=== PATIENT | male | born 1980 | race Two or more races ===

== ENCOUNTER 2020-02-25 15:09 | Emergency (ER) | payer MEDICARE, OTHER ==
[2020-02-25] MEDS ORDERED: HYDROmorphone 1 MG/ML Syringe IVPUSH ONE ×5 (15:29→17:28)
[2020-02-25] MEDS ORDERED: oxyCODONE 5 MG Tab PO ONE (17:09)
--- NOTE | 2020-02-25 17:32 | EDM.PDOC ---
ED HPI GENERAL MEDICAL PROBLEM - General Chief Complaint: Upper Extremity Injury/Pain Stated Complaint: RT SHLDR Time Seen by Provider: 02/25/20 15:25 Source of Information: Reports: Patient History Limitations: Reports: No Limitations - History of Present Illness INITIAL COMMENTS - FREE TEXT/NARRATIVE: Alex is a 39 yo male who presents to the ED with c/o right shoulder pain. He reports he was climbing on a ladder. He slipped and attempted to grab on to the roof with RUE to avoid fall. Ended up falling and landing on his right elbow and reports immediate pain. He denies any numbness or tingling. Does have significant pain to his RUE with any movement. Denies any LOC with fall. Denies any other injury. Did dislocate his right shoulder approximately 4 years ago. Reports at that time he had to be "put under" to get it back in place. This was in [facility]. Onset: Today, Sudden Duration: Constant Location: Reports: Upper Extremity, Right Severity: Severe Worsens with: Reports: Movement Associated Symptoms: Reports: No Other Symptoms. 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 [No Known Home Meds] 02/25/20 [History] Past Medical History - Past Health History Medical/Surgical History: Denies Medical/Surgical History Musculoskeletal History: Reports: Other (See Below) Other Musculoskeletal History: has dislocated right shoulder previously; first time about 4 years ago Social & Family History - Family History Family Medical History: No Pertinent Family History Review of Systems - Review of Systems Review Of Systems: Comprehensive ROS is negative, except as noted in HPI. ED EXAM, GENERAL - Physical Exam Exam: See Below Exam Limited By: No Limitations General Appearance: Alert, WD/WN, Moderate Distress Eye Exam: Bilateral Eye: EOMI, Normal Fundi, Normal Inspection, PERRL Ears: Normal External Exam, Normal Canal, Hearing Grossly Normal, Normal TMs Nose: Normal Inspection, Normal Mucosa, No Blood Throat/Mouth: Normal Inspection, Normal Lips, Normal Teeth, Normal Gums, Normal Oropharynx, Normal Voice, No Airway Compromise Head: Atraumatic, Normocephalic Neck: Normal Inspection, Supple, Non-Tender, Full Range of Motion Respiratory/Chest: No Respiratory Distress, Lungs Clear, Normal Breath Sounds, No Accessory Muscle Use, Chest Non-Tender Cardiovascular: Normal Peripheral Pulses, Regular Rate, Rhythm, No Edema, No Gallop, No JVD, No Murmur, No Rub Peripheral Pulses: 2+: Radial (L), Radial (R) GI/Abdominal: Normal Bowel Sounds, Soft, Non-Tender, No Organomegaly, No Distention, No Abnormal Bruit, No Mass Extremities: Normal Capillary Refill, Arm Pain (RUE), Limited Range of Motion (R SHOULDER), Other (tenderness to right shoulder, visibly dislocated, unable to move without significant pain) Neurological: Alert, Oriented, CN II-XII Intact, Normal Cognition, Normal Gait, Normal Reflexes, No Motor/Sensory Deficits Psychiatric: Normal Affect, Normal Mood Skin Exam: Warm, Dry, Other (abrasion to right mid arm ) Course - Vital Signs Last Recorded V/S: Last Vital Signs Temp 98.2 F 02/25/20 17:29 Pulse 82 02/25/20 17:29 Resp 16 02/25/20 17:29 BP 154/93 H 02/25/20 17:29 Pulse Ox 97 02/25/20 17:29 - Orders/Labs/Meds Orders: Active Orders 24 hr Category Date Time Status Shoulder Comp Rt [CR] Stat Exams 02/25/20 15:44 Ordered Meds: Medications Discontinued Medications Generic Name Dose Route Start Last Admin Trade Name Ozzy PRN Reason Stop Dose Admin Diazepam 10 mg 02/25/20 15:43 02/25/20 15:58 Valium IVPUSH 02/25/20 15:44 10 mg ONETIME ONE Administration Diazepam 5 mg 02/25/20 16:11 02/25/20 15:58 Valium IVPUSH 02/25/20 16:12 5 mg ONETIME ONE Administration Diazepam 5 mg 02/25/20 16:46 Valium IVPUSH 02/25/20 16:47 ONETIME ONE Hydromorphone HCl 1 mg 02/25/20 15:29 02/25/20 15:33 Dilaudid IVPUSH 02/25/20 15:30 1 mg ONETIME ONE Administration Hydromorphone HCl 1 mg 02/25/20 15:44 02/25/20 15:44 Dilaudid IVPUSH 02/25/20 15:45 Not Given ONETIME ONE Hydromorphone HCl 2 mg 02/25/20 15:52 02/25/20 15:57 Dilaudid IVPUSH 02/25/20 15:53 2 mg ONETIME ONE Administration Hydromorphone HCl 2 mg 02/25/20 16:10 02/25/20 15:57 Dilaudid IVPUSH 02/25/20 16:11 2 mg ONETIME ONE Administration Hydromorphone HCl 1 mg 02/25/20 17:28 02/25/20 17:40 Dilaudid IVPUSH 02/25/20 17:29 1 mg ONETIME ONE Administration Oxycodone HCl 10 mg 02/25/20 17:09 02/25/20 17:16 Oxycodone PO 02/25/20 17:10 10 mg ONETIME ONE Administration - Re-Assessments/Exams Free Text/Narrative Re-Assessment/Exam: Xray shows significant anterior dislocation of right shoulder. Dr. Castillo did come to assist with reduction of right shoulder. Attempted external rotation, traction, and abduction without success. Patient was then place prone and attempted sandbagging technique. Dr. Castillo, Cheko CARDOZA, and myself then again attempted manual reduction without success. Opted to proceed with ortho consult. Free Text/Narrative Re-Assessment/Exam: PLEASE SEE NURSES NOTE FOR PMH, PSH, SH & FH. Departure - Departure Time of Disposition: 17:25 Disposition: DC/Tfer to Acute Hospital 02 Condition: Fair Clinical Impression: Anterior shoulder dislocation - Discharge Information *PRESCRIPTION DRUG MONITORING PROGRAM REVIEWED*: Not Applicable *COPY OF PRESCRIPTION DRUG MONITORING REPORT IN PATIENT BOB: Not Applicable Forms: ED Department Discharge Additional Instructions: - Go to [facility] immediately - Keep shoulder sling on at all times - Do not eat or drink anything Sepsis Event Note (ED) - Evaluation Sepsis Screening Result: No Definite Risk - Focused Exam Vital Signs: Vital Signs Temp Pulse Resp BP Pulse Ox 02/25/20 17:29 98.2 F 82 16 154/93 H 97 02/25/20 15:10 96.0 F L 82 16 152/101 H 98 - Problem List & Annotations (1) Anterior shoulder dislocation SNOMED Code(s): 326642357 Code(s): S43.016A - ANTERIOR DISLOCATION OF UNSPECIFIED HUMERUS, INIT ENCNTR Status: Acute Qualifiers: Encounter type: initial encounter Laterality: right Qualified Code(s): S43.014A - Anterior dislocation of right humerus, initial encounter - My Orders Last 24 Hours: My Active Orders 02/25/20 15:44 Shoulder Comp Rt [CR] Stat - Assessment/Plan Last 24 Hours: My Active Orders 02/25/20 15:44 Shoulder Comp Rt [CR] Stat Assessment:: Anterior Shoulder Dislocation, Right Plan: 39 yo male presents to the ED with right shoulder pain. Xrays reveal anteriorly dislocated right shoulder. Attempted multiple techniques for reduction with assistance of Dr. Castillo and Cheko CARDOZA without success. Patient received total of 15 mg Valium, 6 mg dilaudid, and 10 mg oxycodone throughout ED stay. Pain improved with medications but remained 5/10. VSS throughout ED stay. Sling place to RUE. Consulted with Dr. Mathews, [facility] orthopedic surgeon, who recommends sending patient to [facility]. Patient wishes to transfer via private vehicle. He will be transferred to [facility] via his boss Conner. Patient discharged from facility in satisfactory condition.
== END 2020-02-25 17:45 | disposition critical access hospital (66) ==
LOC: CC.ED 15:09
DX: S43.004A Unspecified dislocation of right shoulder joint, initial encounter (principal); W11.XXXA Fall on and from ladder, initial encounter
CPT/HCPCS: 73030; 96374; 96375; 96376; 99284; A9270; J1170; J3360

== ENCOUNTER 2024-07-05 19:07 | Emergency (ER) | payer SELFPAY ==
[2024-07-05] MEDS: Lidocaine 1% 5 ML VIAL INJECT ONE (19:16)
[2024-07-05] MEDS: Diphtheria,Pertussis(Acell),Tetanus Vaccine 0.5 ML Syringe IM ONE (19:16)
[2024-07-05] MEDS: Bacitracin/Neomycin/Polymyxin B Oint 0.9 GM U/D Packet TOP ONE (19:41)
== END 2024-07-05 20:00 | disposition home or self-care (01) ==
LOC: CC.ED 19:07
DX: S51.811A Laceration without foreign body of right forearm, initial encounter (principal); Z23 Encounter for immunization; W23.0XXA Caught, crushed, jammed, or pinched between moving objects, initial encounter
CPT/HCPCS: 12002; 90471; 90715; 99282-25; A9270-GY; J2003